=== PATIENT | female | born 1935 | race Two or more races ===

== ENCOUNTER 2023-10-18 04:30 | Day surgery (SDC) | payer OTHER ==
[2023-10-14 14:37] VITALS: BMI 26.6
[2023-10-18] MEDS ORDERED: BUPIVACAINE HCL/PF 0.5% (5MG/ML) 10 ML VIAL ONE (07:35)
[2023-10-18] MEDS ORDERED: TRIAMCINOLONE ACET 40MG/1ML VIAL ONE (07:35)
[2023-10-18] MEDS ORDERED: LIDOCAINE HCL/PF 1% SDV 5ML VIAL ONE (07:36)
[2023-10-18] MEDS ORDERED: ACETAMINOPHEN 500 MG TABLET (FP) PO PRN (09:35)
[2023-10-18] MEDS ORDERED: TRIAMCINOLONE ACETONIDE 40 MG/ML 10 ML VIAL IJ ONE (12:26)
[2023-10-18] MEDS ORDERED: LIDOCAINE HCL 1% PRESERVATIVE FREE - 30ML VIAL IJ ONE (12:26)
[2023-10-18] MEDS ORDERED: BUPIVACAINE HCL/PF 0.5% (5MG/ML) 10 ML VIAL IJ ONE (12:26)
[2023-10-18] MEDS ORDERED: IOHEXOL 180 MG/1 ML ML IJ ONE (12:26)
[2023-10-18 12:59] VITALS: BP 136/69; PULSE 71; RESP 16; TEMP 97.8
== END 2023-10-18 13:20 | disposition home or self-care (01) ==
LOC: JASU-SURG 04:30
PROVIDERS: ATTEND Pain Medicine Pain Medicine
PROC: 3E0U3GC Introduction of Other Therapeutic Substance into Joints, Percutaneous Approach (ICD-10-PCS; principal; 2023-10-18 12:45)
DX: M53.3 Sacrococcygeal disorders, not elsewhere classified (principal)
CPT/HCPCS: 76000-TC-FY